=== PATIENT | female | born 1965 | race Caucasian/White ===

== ENCOUNTER → 2016-09-22 | Outpatient (CLI) | payer BC ==
[~2016-09-22] MED LIST: ASPEC81 PO; LPT40 PO; LSN25 PO
--- NOTE | 2016-09-23 14:38 | MAMMOGRAPHY REPORT ---
BILATERAL DIGITAL SCREENING MAMMOGRAM TOMOSYNTHESIS WITH CAD: 09/22/2016 CLINICAL HISTORY: Routine screening examination. TECHNIQUE: Breast tomosynthesis in addition to standard 2D mammography was performed. Current study was also evaluated with a Computer Aided Detection (CAD) system. COMPARISON: Comparison is made to exams dated: 09/21/2015 mammogram, 03/22/2013 mammogram, 09/26/2010 m ammogram, 09/20/2010 mammogram, 05/17/2009 mammogram - [facility], and 06/08/2008. BREAST COMPOSITION: The tissue of both breasts is heterogeneously dense, which may obscure small mas ses. FINDINGS: There is a stable benign appearing mass with associated biopsy marker clip in the upper out er posterior right breast. A nodular asymmetry superior to the biopsied mass appears similar on prio r mammograms dating back to at least 05/16/2008, therefore likely benign. There is stable focal asym metry in the upper outer posterior left breast. No new suspicious mass, architectural distortion or cluster of microcalcifications is seen. IMPRESSION: ACR BI-RADS CATEGORY 1: NEGATIVE There is no mammographic evidence of malignancy. A 1 year screening mammogram is recommended. The pa tient will receive written notification of the results. Approximately 10% of breast cancers are not detected with mammography. A negative mammographic report should not delay biopsy if a clinically suggestive mass is present. Ramya Whitt M.D. ay/:09/22/2016 16:58:15 Business System Manager: Patti RENEE(Noel)(Rakesh), [facility] letter sent: Normal 1/2 BI-RADS Code: ACR BI-RADS Category 1: Negative
== END | disposition home or self-care (01) ==
LOC: C.MAMM 13:46
PROVIDERS: ATTEND Obstetrics & Gynecology
DX: Z12.31 Encounter for screening mammogram for malignant neoplasm of breast (principal)

== ENCOUNTER → 2017-09-24 | Outpatient (CLI) | payer BC ==
[~2017-09-24] MED LIST changes: -ASPEC81 PO; +ASPI-320 PO
--- NOTE | 2017-09-24 15:44 | MAMMOGRAPHY REPORT ---
BILATERAL DIGITAL SCREENING MAMMOGRAM TOMOSYNTHESIS WITH CAD: 09/24/2017 CLINICAL HISTORY: Routine screening. TECHNIQUE: The study was acquired using full field digital technology and interpreted from soft copy. Breast tomosynthesis in addition to standard 2D mammography was performed. Current study was also ev aluated with a Computer Aided Detection (CAD) system. COMPARISON: Comparison is made to exams dated: 09/22/2016 mammogram, 09/21/2015 mammogram, 03/22/2013 m ammogram, 09/20/2010 mammogram, 05/17/2009 mammogram - [facility], and 05/16/2008. BREAST COMPOSITION: The tissue of both breasts is heterogeneously dense, which may obscure small mass es. FINDINGS: No suspicious masses, calcifications, or areas of architectural distortion are noted in either breast . There has been no significant interval change compared to prior exams. Benign-appearing mass with an associated biopsy marker clip in the right upper outer quadrant is stable compared to prior exams. IMPRESSION: ACR BI-RADS CATEGORY 2: BENIGN There is no mammographic evidence of malignancy. A 1 year screening mammogram is recommended.( 019) The patient will receive written notification of the results. Some breast cancers are not detected with mammography. A negative mammographic report should not julienne y biopsy if a clinically suggestive mass is present. Autumn Napoles M.D. ah/:09/24/2017 10:23:45 Freight Loading Supervisor: RT Royer(Neol)(M), [facility] letter sent: Normal 1/2 BI-RADS Code: ACR BI-RADS Category 2: Benign
== END | disposition home or self-care (01) ==
LOC: C.MAMM 09:52
PROVIDERS: ATTEND Obstetrics & Gynecology
DX: Z12.31 Encounter for screening mammogram for malignant neoplasm of breast (principal)

== ENCOUNTER 2022-02-19 05:16 | Observation (INO) ==
--- NOTE | 2022-01-23 09:46 | PAT Medication Instructions ---
Medication Instructions Date of Service January 23, 2022 Home Medications aspirin 81 mg tablet,delayed release 81 mg PO QAM Take morning of surgery With a small sip of water, OTHERWISE NOTHING TO EAT OR DRINK AFTER MIDNIGHT: aspirin 81 mg tablet,delayed release 81 mg PO QAM (continue as normal unless told otherwise by surgeon) Other Notes If you have any questions please call us at [phone] or [phone] or [phone] or [phone]
--- NOTE | 2022-01-27 14:00 | Anesthesiology Consultation ---
Date of Service January 27, 2022 Assessment & Plan (1) Encounter for pre-operative examination: - Outpatient joint assessment: Patient is currently scheduled for inpatient pathway. If re-evaluated pending system levels during current pandemic/surgeon requests outpatient pathway, patient is acceptable candidate for outpatient joint program from anesthesia standpoint pending surgeon's office assessment of pt motivation/support/completion of same day joint program preop requirements. Chart Review Chart Review: Acceptable Risk for Surgery and Patient seen in Pre Admission Testing Teaching & Discussion Pre-Anesthesia Teaching/Discussion Notes: Instructed NPO after midnight before surgery, except medications with 15 cc of water. Medication instructions provided according to the PAT guidelines. History Surgery Operation Date: 02/19/22 12:30 Proposed Procedures p Right Total Knee Arthroplasty - Hill Moya MD Height/Weight Height: 5 ft 6 in Weight: 77.111 kg Allergies Allergy/AdvReac Type Severity Reaction Status Date / Time No Known Drug Allergies Allergy Verified 01/22/22 11:17 Medications Home Medications Medication Instructions Recorded Confirmed Last Taken aspirin 81 mg tablet,delayed 81 mg PO QAM 01/22/22 01/22/22 Unknown release Past Medical History Medical History (Updated 01/27/22 @ 14:08 by Jany Villegas PA-C) COVID-19 04/2021-mild symptoms-not hospitalized-fully resolved History of CVA (cerebrovascular accident) 7 years ago. no residual. History of hypertension resolved with wt loss Patient denies h/o seizures, heart attack, heart failure, DM, blood clots or bl ood transfusions. Exercise / Class Metabolic Activity II 4-5 Yardwork/Stairs/Walk up hill (denies CP or SOB with 1 FOS) Past Family History Family History Brother Colonic polyp Son PONV (postoperative nausea and vomiting) Daughter PONV (postoperative nausea and vomiting) Denies family history of Ovarian cancer Breast cancer Colorectal cancer Past Surgical History Surgical History (Updated 01/27/22 @ 14:05 by Jany Villegas PA-C) H/O arthroscopic knee surgery R H/O vein stripping History of colonoscopy History of endometrial ablation History of wisdom tooth extraction Past Anesthesia History No Hx of Anesthesia Complications and Other (daughter-severe PONV, sons- confusion post-op) History of PONV No Hx of PONV and No Hx of Motion Sickness Social History Smoking Status: Never smoker Do You Dip or Chew Tobacco: No Hx Alcohol Use: Yes alcohol intake frequency: a few times a month Hx Substance Use: No substance use type: does not use Review of Systems Snoring, denies witnessed apneas. Patient denies chest pain, shortness of breath, dyspnea on exertion, reflux, fever, chills, cough, wheezing, or palpitations. Physical Exam Vital Signs Vitals BP 107/74 P 82 TEMP 98 SP02 98% on RA RESP 17 Physical Full cervical extension range of motion without pain TMD 3.5 finger breadths Mallampati Score 2 Dentition: intact, one cap; denies chipped or loose teeth, crown, implants or bridges Lungs: normal respiratory effort. Clear throughout to auscultation, no adventitious breath sounds Cardiac: regular rate and rhythm, no murmurs noted Carotid arteries: negative bruit bilat Lab Results Anesthesia Preop Results Results Anesthesia Widget: WBC 6.90 K/ul (4.8-10.8) 01/27/22 Hgb 14.8 g/dl (12.0-16.0) 01/27/22 Hct 43.1 % (34.1-44.9) 01/27/22 Plt 263 K/uL (130-400) 01/27/22 Na 141 mmol/L (136-145) 01/27/22 K 3.8 mmol/L (3.5-5.1) 01/27/22 Cl 104 mmol/L (98-107) 01/27/22 CO2 31 mmol/L (21-32) 01/27/22 BUN 17 mg/dl (6-23) 01/27/22 Creat 1.15 mg/dl (0.6-1.2) 01/27/22 Glucose Level 107 mg/dl (70-99(Fasting)) H 01/27/22 PT 10.9 Seconds (9.0-12.0) 01/27/22 PTT 26.2 Seconds (21.0-31.0) 01/27/22 INR 1.0 (0.9-1.1) 01/27/22 Blood Type O Negative 01/27/22 Antibody Screen NEGATIVE 01/27/22 Testing Electrocardiogram Date: 01/27/22 NSR, rate 78 bpm Chest X-Ray Date: 01/27/22 PA and lateral chest radiographs are compared to study dated 10/18/2014. The cardiomediastinal silhouette is unremarkable. The lungs and pleural spaces are clear. There is no pneumothorax. The bony thorax appears intact. IMPRESSION: No active disease in the chest. COVID-19 Risk Screen Screening Information COVID-19 Screen Date: 01/27/22 Exposure 21 Days Family/Household +COVID Last 21 Days: No Exposure 10 Days Any COVID Exposure Last 10 Days: No Symptoms Last 10 Days Experienced COVID Sx Last 10 Days: No + COVID 0-90 Days COVID + in Last 0-90 Days: No
--- NOTE | 2022-02-14 17:48 | History and Physical Report ---
CHIEF COMPLAINT: Right knee pain and discomfort. 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 She has got a long history o f right knee problems, developed an OCD lesion many years ago. She did have a knee scope by Dr. Nayeli ramos and debrided back in 2003. She just kind of managed this over the years. It has become mo re disabling. She has been through extensive conservative treatments, really do not help anymore. S he has actually been scheduled for a knee brace placed in the past, but had to cancel for family issu es. She now would like to have her knee fixed. She has limited walking tolerance. She has got glob al pain. Of note, she did recently lose 25 pounds and physically feeling better, but her knee still hurts the same. PAST MEDICAL HISTORY: Significant for mini stroke back in 2005 without sequelae on a baby aspirin. PAST SURGICAL HISTORY. Previous surgery includes: Right knee arthroscopy, debridement, chondroplasty in 2003. ALLERGIES: None. CURRENT MEDICATIONS: Baby aspirin. SOCIAL HISTORY: A 56-year-old female. Very healthy. . Multiple children. Does not smoke. FAMILY HISTORY: Noncontributory. REVIEW OF SYSTEMS: Negative for diabetes, neurologic problem, vascular problem, or bleeding disorder s. No chest pain or shortness of breath. No history of DVT or PE. She did have a mini stroke witho ut sequelae followed by Dr. Connors. She is treated with the baby aspirin. Etiology unclear. PHYSICAL EXAMINATION: GENERAL: Shows a pleasant middle-aged female. Looks to be in excellent health. HEENT: Benign. NECK: Supple. No lymphadenopathy. LUNGS: Clear to auscultation. HEART: Regular rate and rhythm. ABDOMEN: Soft, nontender, nondistended. EXTREMITIES: Grossly neurovascularly intact except as follows. Examination of the right knee reveals the patient walks with a slight bit of a limp. The patient has got well-healed portal sites around her knee. She has got bony hypertrophy medially and laterally. She is tender mostly medially. Small knee effusion. Range of motion about 10 degrees short of full extension to 120 degrees of flexion. There is no instability. No pain with hip motion. X-RAYS: X-rays of the right knee were reviewed. It shows advanced right knee tricompartment DJD. S he has got complete loss of medial joint space. She has got osteophytes in all 3 compartments. ASSESSMENT: A 56-year-old female with a lifelong history of right knee pain and discomfort dating ba ck to an OCD lesion many years ago. She has failed conservative treatment and would like to have her right knee replaced. PLAN: We are going to proceed with right knee replacement. She is hoping to do this as an outpatien t. The risks and benefits of right total knee replacement explained to the patient including but not limited to DVT, PE, , infection, neurological injury, vascular injury, bleeding problem, pain, limited range of motion, stiffness, failure to relieve her symptoms, incomplete relief of symptoms, e tc. The patient understands and desires to proceed. Informed consent was obtained. We will plan on using aspirin for DVT prophylaxis. Job ID: [id number]
[2022-02-19] MEDS ORDERED: LR 60ML/HR IV SCH (06:00)
[2022-02-19] MEDS ORDERED: ceFAZolin 2000MG 2,000 MG/15 ML SYR IV SCH (06:00)
[2022-02-19] MEDS ORDERED: METOCLOPRAMIDE HCL 10 MG TABLET PO SCH (06:00)
[2022-02-19] MEDS ORDERED: TRANEXAMIC ACID 1,000 MG **IV Intra-op IV SCH (06:00)
[2022-02-19] MEDS ORDERED: LR 500ML BOLUS, THEN 15ML/HR IV SCH (06:00)
[2022-02-19] MEDS ORDERED: CeleBREX 200 MG CAP PO SCH (06:00)
[2022-02-19] MEDS ORDERED: Scopolamine 1 MG TDSY TD SCH (06:00)
[2022-02-19] MEDS ORDERED: FAMOTIDINE 20 MG TAB PO SCH (06:00)
[2022-02-19] MEDS ORDERED: BUPIVACAINE LIPOSOME/PF 266 MG, BUPIVACAINE/EPINEPHRINE 50 ML, SODIUM CHLORIDE 0.9% 30 ... INFIL SCH (06:00)
[2022-02-19] MEDS ORDERED: ACETAMINOPHEN 500 MG TAB PO SCH (06:00)
[2022-02-19] MEDS ORDERED: ONDANSETRON INJ 2 MG/ML 2 ML VIAL IV PRN ×2 (06:24→16:30)
[2022-02-19] MEDS ORDERED: fentaNYL citrate 100 MCG/2 ML VIAL IV PRN (06:24)
[2022-02-19] MEDS ORDERED: ATROPINE SULFATE 0.1 MG/ML 10ML SYR IV PRN (06:24)
[2022-02-19] MEDS ORDERED: ePHEDrine sulfate 50 MG/ML AMP IV PRN (06:24)
[2022-02-19] MEDS ORDERED: MEPIVACAINE HCL 1.5% 30 ML VIAL ONE (06:28)
[2022-02-19] MEDS ORDERED: BUPIVACAINE 0.25% 30 ML VIAL ONE (06:28)
[2022-02-19] MEDS ORDERED: SODIUM CHLORIDE 0.9% PF 50 ML VIAL ONE (06:35)
[2022-02-19] MEDS ORDERED: BUPIVACAINE/EPINEPHRINE 0.25% 1:200,000 30 ML VIAL ONE (06:35)
[2022-02-19] MEDS ORDERED: BUPIVACAINE LIPOSOME 1.3% 266 MG/20 ML VIAL ONE (06:35)
[2022-02-19] MEDS ORDERED: MIDAZOLAM HCL 1 MG/ML 2ML VIAL ONE (06:42)
--- NOTE | 2022-02-19 06:55 | History & Physical Bridge Note ---
Date of Service February 19, 2022 History & Physical Bridge Note I have examined the patient, reviewed the History & Physical and in the interval since the performance of the History & Physical I have noted the following changes of clinical significance: no changes noted
[2022-02-19] MEDS ORDERED: KETAMINE 50 MG/5 ML SYRINGE ONE (07:07)
[2022-02-19] MEDS ORDERED: PROPOFOL IV EMULSION 10 MG/ML 20 ML VIAL IV ONE (07:08)
[2022-02-19] MEDS ORDERED: KETOROLAC 30 MG/ML VIAL ONE (07:08)
[2022-02-19] MEDS ORDERED: LIDOCAINE 2% MPF LOCAL 5 ML VIAL INFIL ONE (07:08)
[2022-02-19] MEDS ORDERED: fentaNYL citrate 100 MCG/2 ML VIAL ONE (07:24)
[2022-02-19] MEDS ORDERED: ePHEDrine sulfate 50 MG/ML AMP ONE (07:59)
--- NOTE | 2022-02-19 08:51 | Operative Report ---
PG Post Operative Report Pre & Post Diagnosis Operation Date: 02/19/22 07:00 Pre-Op Diagnosis: Right Knee Degenerative Joint Disease Post-Op Diagnosis: Right Knee Degenerative Joint Disease I identified the patient and participated in the time-out.: Yes Procedure Operation Date: 02/19/22 07:00 Actual Procedures p Right Total Knee Arthroplasty, Cemented(Right) - Hill Moya MD Surgeon Hill Moya MD Operator/Assistant Foreman Domingo Jo PA-C Estimated Blood Loss 50 Findings Consistent with Post-Op Diagnosis Operative findings revealed advanced right knee tricompartment DJD. She had pretty extensive grade 4 xtyp-bj-gors disease disease in all 3 compartments most severe in the medial and patellofemoral compartments. Fluids 1300 cc Specimens Right knee sent for pathology Anesthesia Type Spinal MAC Complications none Disposition Accompanied Patient To Recovery: No Indications Patient is a 56-year-old very active female has had a long history of right knee pain discomfort dating back to an OCD lesion many many years ago. She had previous knee arthroscopy 20 years ago. She has been managing this conservatively but has become more more difficult as time goes on. She is exhausted all conservative care. She elected proceed with total knee arthroplasty. Description of Procedure Operative implants consist of: 1 Biomet Vanguard size 65 right posterior stabilized femoral component. 2. Biomet size 67 tibial tray. 3. 12 mm posterior stabilized polyethylene insert. 4. 28 x 8 all Paller patella. The patient was taken the operating, identified, and placed on the operating table supine position protectors were properly padded. IV antibiotics tried by anesthesia team. A spinal anesthetic and abductor canal block had been provided holding area. Right thigh tent was then placed. The right lower extremities then prepped and draped in the usual sterile fashion. The right leg was elevated exsanguinated with use of an Esmarch and the tourniquet was set at 300 mmHg. An anterior approach of the right knee was then performed to longitudinal incision centered over the patella. Sharp dissection scalp through subcutaneous tissue down the extensor mechanism. A medial parapatellar arthrotomy incision was made. Some subperiosteal dissection was carried out medially. The fat pad was resected from Neath patella tendon. Lateral patellofemoral ligament was released. Patella subluxated laterally and the knee was flexed. The osteophytes were taken off the distal femur. The ACL was absent. The PCL was released from the distal femur and the tibia subluxated anteriorly. External tibial alignment jig was then placed to the anterior face of the tibia and adjusted 14 mm medially. Proximal tibial cut was made removed 3 mm of bone from the medial side. The tibia was then sized to a size 67. Attention drawn the femur. The distal femur examined the sharp drop with intramedullary canal was suction. A right 5 degree distal femoral cutting block was pinned in place. Distal femoral cut was made to take an additional 3 mm bone off distal femur. The femur was then sized to a size 65. Sized almost exactly to a 65. The AP cutting block was pinned parallel to the epicondylar axis which was 4 degrees of external rotation. The anterior cut, anterior chamfer, posterior cut, posterior chamfer cuts were made. The box cutting guide was placed in just slight lateral box cut was made. The knee was flexed. The remnants of the medial and lateral menisci were excised. The osteophytes were taken off the posterior aspect of the femur. Trial femoral component was placed. The tibial tray was pinned in maximum external rotation and the drill and stem punch used to create defect in proximal tibia for the tibial tray. Knee was then trialed and the 12 mm insert fit most appropriately. Attention drawn the patella. The patella was cleaned of all soft tissues. Patella thickness measured by 18 mm in thickness was cut down to 13. It was sized to a size 28 patella. The lug holes were drilled for the 28 patella. The lateral osteophyte was removed. Patella button was placed. Knee was taken through range of motion the patella tracked nicely with the no thumbs test. Attention drawn to placing permanent components. All trial components were removed. Bone plug was placed in the distal femur limit blood loss. A double batch Palacos G cement was mixed. Biomet Vanguard size 65 right posterior stabilized femoral component, size 67 tibial tray, a 12 mm posterior stabilized polyethylene insert, and 28 x 8 all Paller patella then cemented in place. Knee was brought out into full extension until cement hardened. Final cement check was then performed. Pericapsular tissues were injected with total 100 cc of combination of 20 cc of Exparel, 30 cc normal saline, 50 cc of quarter percent Marcaine with epinephrine. Patient did receive 1 g tranexamic acid. The tourniquet was let down for final tourniquet time 56 minutes. Hemostasis reduced electrocautery. The extensor mechanism then closed with a combination 1 PDS suture #1 Vicryl suture in [id number] fashion. Extensor mechanism checked found to be intact the subcutaneous tissue then closed with 2 Dexon suture in a buried interrupted fashion skin was closed skin randi. Leg was then cleaned and dried a sterile dressing was Xeroform, 4 x 4's, sterile cast padding, Gurdeep bandage were applied. Patient then transferred to the recovery room in stable condition. Patient tolerated procedure well and there were no complications. Domingo Jo, my physician certified surgical tech/first assistant, was present for the entire procedure. His assistance was essential and required for appropriate patient positioning, prepping and draping, surgical exposure, performing the technical details of the operation, placement the implants, closure of the wound, and placement of the sterile bandage. I attest to the content of the Intraoperative Record and any orders documented therein. Any exceptions are noted below.
[2022-02-19] MEDS ORDERED: ONDANSETRON INJ 2 MG/ML 2 ML VIAL ONE (08:55)
--- NOTE | 2022-02-19 09:09 | XRay Report ---
XR knee RT 1 or 2V routine CLINICAL HISTORY: Surgical Post Op TECHNIQUE: 2 views of the right knee were obtained. Comparison: Comparison is made to knee radiographs 01/20/2022 FINDINGS: Patient is status post total knee arthroplasty with expected postsurgical changes including soft tiss ue swelling and subcutaneous emphysema. No periarticular lucency or hardware fracture is seen. IMPRESSION: Expected postoperative appearance status post placement of total knee arthroplasty. ACT 112: Negative or not required by law. Electronically signed by: Zackary Woodson M.D. 02/19/2022 9:07 AM
[2022-02-19] MEDS ORDERED: ceFAZolin 1000MG 1,000 MG/7.5 ML SYR IV ONE (10:00)
--- NOTE | 2022-02-19 10:43 | Anesthesiology Progress Note ---
Date of Service February 19, 2022 Anesthesia Post Procedure Vital Signs Vital Signs: Temp Pulse Pulse Resp BP BP Pulse Ox 02/19/22 10:11 36.6 C 66 18 106/85 98 02/19/22 09:20 36.5 C 81 18 111/69 96 02/19/22 09:15 36.4 C L 70 14 131/68 94 02/19/22 09:05 64 13 125/73 93 02/19/22 08:55 68 17 123/69 98 02/19/22 08:47 36.3 C L 71 12 127/70 98 02/19/22 05:39 36.7 C 67 20 151/89 H 98 O2 Del Method O2 Flow Rate 02/19/22 10:11 Room Air 02/19/22 09:20 Room Air 02/19/22 09:15 Room Air 02/19/22 09:05 Room Air 02/19/22 08:55 Room Air 02/19/22 08:47 Oxymask 4 02/19/22 05:39 Room Air Pain Intensity Right Leg: Pain Intensity: 7 Transfer of Care Handoff Completed per policy Notes Mental Status: alert / awake / arousable and participated in evaluation Patient Amnestic to Procedure: Yes Nausea / Vomiting: adequately controlled Pain: adequately controlled Airway Patency, RR, SpO2: stable & adequate BP & HR: stable & adequate Hydration State: stable & adequate Neuraxial Anesthesia: was administered and sensory block is resolving Anesthetic Complications: no major complications apparent and Pt Satisfied with anesthetic care
[2022-02-19] MEDS: oxyCODONE/ACETAMINOPHEN 5mg/325mg TAB PO PRN ×3 (10:56→19:59)
[2022-02-19] MEDS ORDERED: bisacodyL 10 MG SUPP PR PRN (16:30)
[2022-02-19] MEDS ORDERED: SODIUM CHLORIDE 0.9% 1000ML 1,000 ML IV SCH (16:30)
[2022-02-19] MEDS ORDERED: HYDROmorphone INJ 0.5 MG/0.5 ML SYR IV PRN (16:30)
[2022-02-19] MEDS ORDERED: diphenhydrAMINE Capsule 25 MG CAP PO PRN (16:30)
[2022-02-19] MEDS ORDERED: NALOXONE HCL 0.4 MG/1 ML VIAL/CARP IV PRN (16:30)
[2022-02-19] MEDS ORDERED: MAGNESIUM HYDROXIDE SUSP 30 ML UDC PO PRN (16:30)
[2022-02-19] MEDS ORDERED: METOCLOPRAMIDE HCL INJ 5 MG/ML 2 ML VIAL IV PRN (16:30)
[2022-02-19] MEDS ORDERED: oxyCODONE HCL IR 5 MG TAB (IMMEDIATE RELEASE) PO PRN (16:30)
[2022-02-19] MEDS ORDERED: ALUMINUM/MAGNESIUM SUSP 30 ML UDC PO PRN (16:30)
[2022-02-19] MEDS: Scopolamine CHECK PATCH PLACEMENT SCH ×2 (17:54→23:58)
[2022-02-19] MEDS: ASCORBIC ACID 500 MG TAB PO SCH (17:54)
[2022-02-19] MEDS: KETOROLAC 30 MG/ML VIAL IV SCH ×2 (17:55→23:06)
[2022-02-19] MEDS: ceFAZolin 1000MG 1,000 MG/7.5 ML SYR IV SCH (17:55)
[2022-02-19] MEDS: ASPIRIN 81 MG ECTAB PO SCH (20:20)
[2022-02-19] MEDS: DOCUSATE SODIUM 100 MG CAP PO SCH (20:20)
[2022-02-19] MEDS: DOCUSATE SODIUM/SENNA 50/8.6MG TAB PO SCH (20:21)
[2022-02-19] MEDS ORDERED: SENNA 8.6 MG TAB PO SCH (21:00)
[2022-02-19] MEDS ORDERED: TRANEXAMIC ACID / 0.7% NACL 1,000 MG/100 ML BAG IV SCH (21:00)
[2022-02-19] MEDS: ACETAMINOPHEN 500 MG TAB PO SCH (21:59)
[2022-02-20] MEDS: oxyCODONE/ACETAMINOPHEN 5mg/325mg TAB PO PRN ×3 (00:01→08:29)
[2022-02-20] MEDS: ACETAMINOPHEN 500 MG TAB PO SCH (01:08)
[2022-02-20] MEDS: ceFAZolin 1000MG 1,000 MG/7.5 ML SYR IV SCH (02:34)
[2022-02-20] MEDS: KETOROLAC 30 MG/ML VIAL IV SCH ×2 (04:22→11:33)
[2022-02-20 07:41] LABS: Hemoglobin 11.8 g/dl (12.0-16.0); Mean Corpuscular Hemoglobin 30.5 pg (25.0-34.0); Mean Corpuscular Hgb Conc 33.7 g/dL (32.0-36.0); Mean Corpuscular Volume 90.4 fL (80.0-100.0); Mean Platelet Volume 9.6 fL (9.4-12.3); Platelet Count 189 K/uL (130-400); RDW Coefficient of Variation 12.7 % (11.5-14.5); RDW Standard Deviation 41.4 fL (36.4-46.3); Red Blood Count 3.87 M/uL (3.93-5.22); White Blood Count 6.24 K/ul (4.8-10.8)
--- NOTE | 2022-02-20 07:43 | Progress Notes ---
DATE OF SERVICE: 02/20/2022. SUBJECTIVE: A 56-year-old white female, postoperative day 1 from a right knee replacement. She is d oing much better this morning. She has gotten up and walked around by herself with a walker. Dizzin ess seems to be resolved. No chest pain or shortness of breath. OBJECTIVE: VITAL SIGNS: Temperature 36.9. Vital signs are stable. GENERAL: Shows a pleasant middle-aged female. She is sitting by her bedside with dangling her feet and looks quite comfortable. LUNGS: Clear to auscultation. HEART: Regular rate and rhythm. ABDOMEN: Soft, nontender, nondistended. EXTREMITIES: Grossly neurovascularly intact except as follows. Examination of the right leg reveals the dressing to be clean, dry and intact. She can dorsiflex and plantarflex her foot appropriately. She is neurologically intact. ASSESSMENT: A 56-year-old white female, postoperative day 1 from right knee replacement, doing well. She is planning on going home, but had troubles with orthostasis. This seems to be resolved. PLAN: 1. DVT prophylaxis includes thigh-high TEDs, SCDs, and aspirin twice a day. 2. PT/OT, weightbear as tolerated. Right total knee protocol. 3. Pain control, doing well with current pain regimen. 4. Disposition: Plan to discharge to home with some home health after therapy today. Job ID: [id number]
[2022-02-20] MEDS ORDERED: dexAMETHasone 10 MG in SYRINGE 0 ML IV SCH (08:00)
[2022-02-20] MEDS: ASPIRIN 81 MG ECTAB PO SCH (08:30)
[2022-02-20] MEDS: DOCUSATE SODIUM 100 MG CAP PO SCH (08:31)
[2022-02-20] MEDS: DOCUSATE SODIUM/SENNA 50/8.6MG TAB PO SCH (08:31)
[2022-02-20] MEDS: Scopolamine CHECK PATCH PLACEMENT SCH (08:34)
[2022-02-20] MEDS ORDERED: MULTIVITAMIN TAB PO SCH (09:00)
[2022-02-20 09:03] LABS: BUN Creatinine Ratio 11.6 (10-20); Calcium 8.5 mg/dl (8.5-10.1); Creatinine Clr Calc Pharmacy 59.7 ml/min; Est GFR (African American) 63.6 ml/min; Est GFR (Non-African American) 54.9 ml/min; Potassium 3.9 mmol/L (3.5-5.1)
[2022-02-20] MEDS: ASCORBIC ACID 500 MG TAB PO SCH (09:47)
--- NOTE | 2022-02-22 16:05 | Discharge Summary ---
Date of Service February 22, 2022 Discharge Data Procedures Performed Operation Date: 02/19/22 07:00 Actual Procedures p Right Total Knee Arthroplasty, Cemented(Right) - Hill Moya MD Hospital Course (1) Status post total right knee replacement: This is a 56 year old patient admitted on 02/19/22 and underwent total knee arthroplasty. She tolerated the procedure well and there were no complications. She had some hypotension post op and was admitted, transferred to the PACU post op and later to the orthopedic floor for further care. She was given ancef for antibiotic prophylaxis. She was also given RENETTA stockings, SCDs, and aspirin for DVT prophylaxis. Hemoglobin, hematocrit, and vital signs were monitored during her hospital stay and remained stable. Did not require any blood transfusions. There were no complications during her hospital stay. By post op day #1 the patient was tolerating a regular diet, pain was reasonably controlled with oral pain medicine, and she was participating in physical therapy. On post op day #1 the patient was discharged home and set up with home health care. She was given printed discharge instructions including prescriptions for extra strength tylenol, aspirin, cefadroxil, zofran, ketorolac, senokot, and oxycodone. Continue physical therapy, weight bearing as tolerated. Continue RENETTA stockings. Follow up approximately 2 weeks post op or sooner if there are problems or concerns. Coding Level of Care Code None Diagnoses Status post total right knee replacement Z96.651
== END 2022-02-20 12:33 | disposition home health service (06) ==
LOC: ASU 05:16 → 3N 05:16

== ENCOUNTER 2024-06-14 05:20 | Observation (INO) ==
--- NOTE | 2024-05-12 16:15 | PAT Medication Instructions ---
Medication Instructions Date of Service May 12, 2024 Home Medications aspirin 81 mg tablet,delayed release (Huma Low Dose Aspirin) 81 mg PO QAM multivitamin 1 tab PO QAM ASK your prescriber and surgeon aspirin 81 mg tablet,delayed release (Huma Low Dose Aspirin) 81 mg PO QAM DO NOT take the morning of surgery multivitamin 1 tab PO QAM MORNING OF SURGERY: NOTHING TO EAT OR DRINK AFTER MIDNIGHT Other Notes If you have any questions please call us at [phone] or [phone] or [phone] or [phone]
--- NOTE | 2024-05-19 15:17 | Anesthesiology Consultation ---
Date of Service May 19, 2024 Assessment & Plan (1) Encounter for pre-operative examination: - Outpatient joint assessment: Patient is currently scheduled for inpatient pathway. If re-evaluated and patient/surgeon requests outpatient pathway, patient is acceptable candidate for outpatient joint program from anesthesia standpoint pending surgeon's office assessment of pt motivation/support/completion of same day joint program preop requirements. Chart Review Chart Review: Acceptable Risk for Surgery and Patient seen in Pre Admission Testing Teaching & Discussion Pre-Anesthesia Teaching/Discussion Notes: Instructed NPO after midnight before surgery, except medications with 15 cc of water. Medication instructions provided according to the PAT guidelines. History Surgery Operation Date: 06/14/24 10:40 Proposed Procedures p Right Total Hip Arthroplasty - Hill Moya MD Height/Weight Height: 5 ft 6 in Weight: 88.4 kg Allergies Allergy/AdvReac Type Severity Reaction Status Date / Time Sulfa (Sulfonamide Allergy Mild Rash Verified 05/11/24 16:03 Antibiotics) Medications Home Medications Medication Instructions Recorded Confirmed Last Taken aspirin 81 mg tablet,delayed 81 mg PO QAM 05/11/24 05/11/24 Unknown release (Huma Low Dose Aspirin) multivitamin 1 tab PO QAM 05/11/24 05/11/24 Unknown Past Medical History Medical History (Updated 05/19/24 @ 16:27 by Jany Villegas PA-C) Arthritis of right hip Chronic venous insufficiency COVID-19 (~2021) 04/2021-mild symptoms-not hospitalized-fully resolved History of CVA (cerebrovascular accident) (2014) no deficits--on aspirin daily--following with Dr. Stokes History of hypertension resolved with wt loss PONV (postoperative nausea and vomiting) Sleep apnea mild--bite block is being made, no CPAP Patient denies h/o seizures, heart attack, heart failure, DM, blood clots/DVTs or blood transfusions. Exercise / Class Metabolic Activity II 4-5 Yardwork/Stairs/Walk up hill (denies chest discomfort or shortness of breath with one flight of stairs) Past Family History Family History Brother Colonic polyp Son PONV (postoperative nausea and vomiting) Daughter PONV (postoperative nausea and vomiting) Mother Amyloidosis Father Coronary heart disease Hypertension Denies family history of Ovarian cancer Breast cancer Colorectal cancer Past Surgical History Surgical History (Updated 05/19/24 @ 15:19 by Jany Villegas PA-C) H/O arthroscopic knee surgery R H/O vein stripping right leg History of colonoscopy History of endometrial ablation History of knee replacement (02/2022) right History of wisdom tooth extraction Past Anesthesia History No Hx of Anesthesia Complications History of PONV No Hx of Motion Sickness and History of PONV (did well with IV pre-dosing) Social History Smoking Status: Never smoker Do You Dip or Chew Tobacco: No Hx Alcohol Use: No alcohol intake frequency: a few times a month Hx Substance Use: No substance use type: does not use Review of Systems Patient denies chest pain, shortness of breath, dyspnea on exertion, reflux, fever, chills, cough, wheezing, or palpitations. Physical Exam Vital Signs Vitals BP 117/74 P 74 TEMP 97.9 SP02 97% on RA RESP 18 Physical Patient resting comfortably in chair in no acute distress, alert and oriented, responding appropriately throughout visit Full cervical extension range of motion without pain TMD 3.5 finger breadths Mallampati Score 2 Dentition: cap front upper tooth, denies chipped or loose teeth, crowns, implants or bridges Lungs: normal respiratory effort. Good air movement, clear throughout to auscultation, no adventitious breath sounds Cardiac: regular rate and rhythm, no murmurs noted Carotid arteries: negative bruit bilat Lab Results Anesthesia Preop Results Results Anesthesia Widget: WBC 5.57 K/ul (4.8-10.8) 05/19/24 Hgb 14.6 g/dl (12.0-16.0) 05/19/24 Hct 42.2 % (37.0-47.0) 05/19/24 Plt 248 K/uL (130-400) 05/19/24 Na 141 mmol/L (136-145) 05/19/24 K 4.4 mmol/L (3.5-5.1) 05/19/24 Cl 104 mmol/L (98-107) 05/19/24 CO2 32 mmol/L (21-32) 05/19/24 BUN 19 mg/dl (6-23) 05/19/24 Creat 1.00 mg/dl (0.6-1.2) 05/19/24 Glucose Level 112 mg/dl (70-99(Fasting)) H 05/19/24 PT 10.6 Seconds (9.0-12.0) 05/19/24 PTT 27 Seconds (21-31) 05/19/24 INR 1.0 (0.9-1.1) 05/19/24 Blood Type O Negative 05/19/24 Antibody Screen NEGATIVE 05/19/24 Testing Electrocardiogram Date: 05/19/24 NSR, rate 70 bpm Chest X-Ray Date: 05/19/24 Stable exam; no acute process.
[2024-06-14] MEDS: LR 500ML BOLUS, THEN 15ML/HR IV SCH (05:48)
[2024-06-14] MEDS: CeleBREX 200 MG CAP PO SCH (06:02)
[2024-06-14] MEDS: LR 60ML/HR IV SCH (06:02)
[2024-06-14] MEDS: METOCLOPRAMIDE HCL 10 MG TABLET PO SCH (06:08)
[2024-06-14] MEDS: ACETAMINOPHEN 500 MG TAB PO SCH ×2 (06:08→10:50)
[2024-06-14] MEDS: FAMOTIDINE 20 MG TAB PO SCH (06:08)
[2024-06-14] MEDS: dexAMETHasone**PF** 10 MG/ML VIAL IV SCH (06:09)
[2024-06-14] MEDS ORDERED: BUPIVACAINE 0.5 % 5 MG/1 ML PF 10ML VIAL ONE (06:28)
[2024-06-14] MEDS ORDERED: fentaNYL citrate PF 100 MCG/2 ML VIAL IV PRN (06:29)
[2024-06-14] MEDS ORDERED: ePHEDrine sulfate 50 MG/ML AMP IV PRN (06:29)
[2024-06-14] MEDS ORDERED: ATROPINE SULFATE 0.1 MG/ML 10ML SYR IV PRN (06:29)
[2024-06-14] MEDS ORDERED: DROPERIDOL 5 MG/2 ML VIAL IV PRN (06:29)
[2024-06-14] MEDS ORDERED: MIDAZOLAM HCL 1 MG/ML 2ML VIAL ONE (06:32)
[2024-06-14] MEDS ORDERED: fentaNYL citrate PF 100 MCG/2 ML VIAL ONE (06:32)
--- NOTE | 2024-06-14 06:35 | History & Physical Bridge Note ---
Date of Service June 14, 2024 History & Physical Bridge Note I have examined the patient, reviewed the History & Physical and in the interval since the performance of the History & Physical I have noted the following changes of clinical significance: no changes noted
[2024-06-14] MEDS ORDERED: LIDOCAINE 2% 2 ML VIAL/AMP(20MG/ML) INFIL ONE (06:39)
[2024-06-14] MEDS ORDERED: PROPOFOL IV EMULSION 10 MG/ML 20 ML VIAL IV ONE (06:39)
[2024-06-14] MEDS: TRANEXAMIC ACID 1,000 MG **IV Pre-op IV SCH (06:43)
[2024-06-14] MEDS: ceFAZolin 2000MG 2,000 MG/15 ML SYR IV SCH ×2 (06:57→15:21)
[2024-06-14] MEDS ORDERED: PHENYLEPHRINE 100MCG/ML 5ML SYR ONE (07:18)
[2024-06-14] MEDS ORDERED: ePHEDrine sulfate 50 MG/5 ML SYR ONE (07:18)
[2024-06-14] MEDS: BUPIVACAINE/EPINEPHRINE 0.5% MPF 1:200,000 30 ML VIAL ONE (07:34)
--- NOTE | 2024-06-14 08:48 | Operative Report ---
PG Post Operative Report Pre & Post Diagnosis Operation Date: 06/14/24 07:00 Pre-Op Diagnosis: Right Hip Degenerative Joint Disease Post-Op Diagnosis: Right Hip Degenerative Joint Disease I identified the patient and participated in the time-out.: Yes Procedure Operation Date: 06/14/24 07:00 Actual Procedures p Right Total Hip Arthroplasty, Uncemented(Right) - Hill Moya MD Surgeon Hill Moya MD Sewer Head Domingo Jo PA-C Estimated Blood Loss 150 Findings Consistent with Post-Op Diagnosis Operative findings were advanced right hip DJD. She had grade 4 [id number] disease of the femoral head and acetabulum. Moderate-sized joint effusion. Fairly minimal osteophyte formation. Specimens Right femoral head sent for pathology. Anesthesia Type Spinal MAC Complications none Disposition Accompanied Patient To Recovery: No Indications Patient is a 59-year-old fairly active female whose had a history of orthopedic problems in the past. She underwent a right knee replacement about 2 and half years ago. Over the past year she developed increased pain discomfort in her right hip has gotten markedly worse over the past 6 months. She failed conservative care. X-rays show progressive hip arthritis. She elected proceed with operative treatment Description of Procedure Operative implants consist of: 1 Biomet G7 size 50 mm acetabular shell. 2. Raymond hole stone cutter. 3. 6.5 cancellous acetabular screws 135 mm length and 125 mm length. 4. Highly cross-linked polyethylene liner with a 50 mm outer diameter, 36 mm diam with a ram placed inferior and posterior. 5. DePuy Corail size 11 short neck 125 degree angle femoral stem. 6. +5/36 mm ceramic articular ball. The patient was taken the op room, identified, placed on the operating table in the supine position. All conductors were appropriately padded. IV antibiotics fibra anesthesia team. A spinal anesthetic had been implemented holding area. A Shah catheter was placed in sterile fashion. The patient then placed in the left lateral cubitus position. An axillary roll was placed. A stool Birkett position was used for positioning. The right hip and leg were then prepped and draped in usual sterile fashion. A posterolateral approach to the right hip was then performed to a curvilinear incision centered over the greater trochanter. Sharp dissection was carried thr ough subcutaneous tissue down of the IT band gluteal fascia with the IT band gluteal fascia incised longitudinally in line with skin incision. The underlying greater bursa was excised. The piriformis and external rotators along with the posterior joint capsule were then released from the posterior aspect the hip as a single layer. The hip was internally rotated and dislocated. A femoral neck osteotomy cut was made with Final Cut about 10 mm above the lesser trochanter. Femoral head was removed and sent for pathology. The femur was retracted anteriorly. Attention was then drawn to the acetabulum. The acetabular labrum was excised. The pulmonary fat was excised. Sequential reaming the acetabular was then performed again with size 43 and progressing up to a 49. I reamed a little bit with a 50 reamer and then placed a 50 mm Biomet cup in about 40 degrees lateral opening and 20 degrees of anteversion. It was fixed with two 6.5 screws. A trial liner was placed. Attention drawn the femur. The proximal femur was entered with a ChaoWIFI cutter followed by canal finder. I then broached beginning the size 8 and progressing up to 11. Get excellent fit at 11. We trialed the hip and the +5 articular ball with the standard coxa vara neck just seemed too tight particular in extension. Therefore we elected to use a short neck. When we trialed this with a +5 articular ball, the soft tissue tension seemed appropriate, leg lengths seemed equal and the hip was stable in full extension and external rotation flexion to about 90 degrees internal Tatian about 50 degrees. I did elect to place a ram inferior and posterior to maximize her stability in flexion. We elected place these implants. All trial implants were removed. An apex hole stone cutter was placed. Highly cross-linked polyethylene liner was placed with a ram placed inferior and posteriorly. A size 11 KLA short neck 125 degree angle femoral stem was then impacted in position. A +5/36 mm ceramic articular ball was placed. Hip was located once again found to be stable. Attention drawn toward closing. Wounds irrigated copious amounts of pulsatile lavage solution. We did inject locally with 60 cc of half percent Marcaine with epinephrine. I did do a Betadine soak. The wound was then once again irrigated. The posterior capsule and external rotators were then repaired through drill holes in the posterior trochanter with #2 Tycron suture. The IT band gluteal fascia was then closed with #1 PDS suture running fashion through subcutaneous tissue then closed with 2 layers of the deep layer #2 Vicryl suture and subcutaneous tissues with 2-0 Dexon suture in a buried interrupted fashion. The skin was then closed with skin randi. Leg was then cleaned and dried and a sterile Prevena VAC dressing was applied due to the fairly thick soft tissue envelope. The patient was then transported to the recovery room in stable condition. The patient tolerated procedure well and there were no complications. Domingo Jo, my physician medical records assistant, was present for the entire procedure. His assistance was essential and required for appropriate patient positioning, prepping and draping, surgical exposure, performing the technical details of the operation, placement the implants, closure of the wound, and placement of the sterile bandage. I attest to the content of the Intraoperative Record and any orders documented therein. Any exceptions are noted below.
--- NOTE | 2024-06-14 09:15 | XRay Report ---
XR hip 1V RT w pelvis CLINICAL HISTORY: IN PACU - Post Surgical COMPARISON: None FINDINGS: Right hip prosthesis shows no hardware complication. There is expected soft tissue gas. Sk in randi are present. IMPRESSION: Unremarkable postoperative exam. ACT 112: Negative or not required by law. Electronically signed by: West Restrepo M.D. 06/14/2024 9:13 AM
[2024-06-14] MEDS ORDERED: ONDANSETRON INJ 2 MG/ML 2 ML VIAL IV PRN (10:33)
[2024-06-14] MEDS ORDERED: diphenhydrAMINE Capsule 25 MG CAP PO PRN (10:33)
[2024-06-14] MEDS ORDERED: HYDROmorphone INJ 0.5 MG/0.5 ML SYR IV PRN (10:33)
[2024-06-14] MEDS ORDERED: MAGNESIUM HYDROXIDE SUSP 30 ML UDC PO PRN (10:33)
[2024-06-14] MEDS ORDERED: NALOXONE HCL 0.4 MG/1 ML VIAL/CARP IV PRN (10:33)
[2024-06-14] MEDS ORDERED: ALUMINUM/MAGNESIUM SUSP 30 ML UDC PO PRN (10:33)
[2024-06-14] MEDS ORDERED: METOCLOPRAMIDE HCL INJ 5 MG/ML 2 ML VIAL IV PRN (10:33)
[2024-06-14] MEDS ORDERED: bisacodyL 10 MG SUPP PR PRN (10:33)
[2024-06-14] MEDS: KETOROLAC 30 MG/ML VIAL IV SCH (10:51)
[2024-06-14] MEDS: NON-FORMULARY MEDICATION (Multivitamin Tablet) PO SCH (10:52)
[2024-06-14] MEDS: SODIUM CHLORIDE 0.9% 1,000 ML IV SCH (11:08)
[2024-06-14] MEDS: DOCUSATE SODIUM 100 MG CAP PO SCH (11:18)
[2024-06-14] MEDS: SENNA 8.6 MG TAB PO SCH (11:18)
[2024-06-14] MEDS: ASPIRIN 81 MG ECTAB PO SCH (12:11)
[2024-06-14] MEDS: MULTIVITAMIN TAB PO SCH (12:11)
--- NOTE | 2024-06-14 12:39 | Anesthesiology Progress Note ---
Date of Service June 14, 2024 Anesthesia Post Procedure Vital Signs Vital Signs: Temp Pulse Pulse Resp BP Pulse Ox O2 Del Method 06/14/24 11:31 36.6 C 67 17 125/82 98 Room Air 06/14/24 10:30 36.4 C L 75 17 131/76 97 Room Air 06/14/24 10:20 87 20 135/71 99 Room Air 06/14/24 10:05 73 14 122/70 95 Room Air 06/14/24 09:50 65 12 126/73 96 Room Air 06/14/24 09:40 65 14 132/72 96 Room Air 06/14/24 09:30 70 16 133/75 97 Room Air 06/14/24 09:20 82 16 138/75 95 Room Air 06/14/24 09:10 36.4 C L 75 14 145/79 H 94 Room Air 06/14/24 09:00 74 16 135/77 100 Oxymask 06/14/24 08:50 69 12 132/85 97 Oxymask 06/14/24 08:40 74 12 125/67 98 Oxymask 06/14/24 08:34 36.2 C L 72 16 119/66 97 Oxymask 06/14/24 05:44 36.9 C 78 18 150/84 H 96 Room Air O2 Flow Rate 06/14/24 11:31 06/14/24 10:30 06/14/24 10:20 06/14/24 10:05 06/14/24 09:50 06/14/24 09:40 06/14/24 09:30 06/14/24 09:20 06/14/24 09:10 06/14/24 09:00 4 06/14/24 08:50 4 06/14/24 08:40 4 06/14/24 08:34 4 06/14/24 05:44 Pain Intensity Right Hip: Pain Intensity: 3 Transfer of Care Handoff Completed per policy Notes Mental Status: alert / awake / arousable Patient Amnestic to Procedure: Yes Nausea / Vomiting: adequately controlled Pain: adequately controlled Airway Patency, RR, SpO2: stable & adequate BP & HR: stable & adequate Hydration State: stable & adequate Anesthetic Complications: no major complications apparent and Pt Satisfied with anesthetic care
[2024-06-14] MEDS: TRANEXAMIC ACID / 0.7% NACL 1,000 MG/100 ML BAG IV SCH (14:57)
[2024-06-14] MEDS: ASCORBIC ACID 500 MG TAB PO SCH (17:25)
[2024-06-14] MEDS: traMADol HCL 50 MG TABLET PO PRN (18:41)
[2024-06-14] MEDS ORDERED: SENNA 8.6 MG TAB PO SCH (21:00)
[2024-06-15 06:36] LABS: Basophils # (auto) 0.03 K/uL (0.00-0.20); Basophils % (auto) 0.3 %; Eosinophils # (auto) 0.02 K/uL (0.00-0.50); Eosinophils % (auto) 0.2 %; Hematocrit (blood only) 39.6 % (37.0-47.0); Hemoglobin 13.6 g/dl (12.0-16.0); Immature Granulocytes # (auto) 0.05 K/uL (0.01-0.20); Immature Granulocytes % (auto) 0.5 %; Lymphocytes # (auto) 1.61 K/uL (1.20-3.40); Lymphocytes % (auto) 16.4 %; Mean Corpuscular Hemoglobin 30.5 pg (25.0-34.0); Mean Corpuscular Hgb Conc 34.3 g/dL (32.0-36.0); Mean Corpuscular Volume 88.8 fL (80.0-100.0); Mean Platelet Volume 9.7 fL (9.4-12.4); Monocytes # (auto) 0.94 K/uL (0.11-0.59); Monocytes % (auto) 9.6 %; Neutrophils # (auto) 7.14 K/uL (1.40-6.50); Platelet Count 236 K/uL (130-400); RDW Coefficient of Variation 12.3 % (11.5-14.5); RDW Standard Deviation 39.5 fL (36.4-46.3); Red Blood Count 4.46 M/uL (4.20-5.40); White Blood Count 9.79 K/ul (4.8-10.8)
[2024-06-15 07:04] LABS: BUN Creatinine Ratio 15.6 (10-20); Calcium 8.5 mg/dl (8.6-10.3); Creatinine Clr Calc Pharmacy 74.9 ml/min
[2024-06-15 07:25] VITALS: BP 149/82; PULSE 65; RESP 16; TEMP 97.9; O2SAT 99
[2024-06-15] MEDS: dexAMETHasone 10 MG in SYRINGE 0 ML IV SCH (08:52)
--- NOTE | 2024-06-15 11:22 | Orthopedic Progress Note ---
Date of Service June 15, 2024 Assessment & Plan (1) Status post right hip replacement: Plan: 59-year-old female postop day 1 from right hip replacement doing well. Pain is controlled. Hips located. She is neurologically intact. Plan: 1. DVT prophylaxis including thigh-high teds, SCDs, aspirin twice a day. 2. PT/OT. Weight-bear as taught. Right total knee protocol. 3. Pain control. Doing well with current pain regimen. 4. Disposition. Plan is to discharge to home with some home health today. Admission and Anticipated Discharge Date Admission Date: June 14, 2024 Subjective 59-year-old female postop day 1 from a right hip replacement. She is doing pretty well. Had a reasonable night. Pains been controlled. No chest pain or shortness of breath. Not feeling dizzy or lightheaded. Physical Exam Physical Exam: Enrique gar is a pleasant middle-age female. She was sitting in her bedside chair when I visited her today. Examination of the hip reveals the dressing be clean dry and intact. Prevena VAC dressing is working appropriately. Leg lengths appear equal. Thigh is soft and supple. She is neurologically intact. Respiratory: normal respiratory effort, lungs clear to auscultation Cardiovascular: RRR, no murmur, no edema Gastrointestinal (Abdomen): normal bowel sounds, soft, nontender, no hepatosplenomegaly Results & Data Vital Signs (Past 12 Hours) Vital Signs Temp Pulse Pulse Resp BP BP Pulse Ox 06/15/24 07:24 36.6 C 65 16 149/82 H 99 06/15/24 02:39 36.9 C 75 18 137/75 96 O2 Del Method 06/15/24 07:24 Room Air 06/15/24 02:39 Room Air Laboratory Results Hemoglobin is 13.6. Mackert is 39.6. Electrolytes are stable.
--- NOTE | 2024-06-15 12:36 | Discharge Summary ---
Date of Service June 15, 2024 Principal Diagnosis Same as "Discharge Diagnosis" noted below under Discharge Instructions. Discharge Data Procedures Performed Operation Date: 06/14/24 07:00 Actual Procedures p Right Total Hip Arthroplasty, Uncemented(Right) - Hill Moya MD Hospital Course (1) Status post right hip replacement: On June 14, 2024 Rima arrived at [facility] and underwent a right total hip arthroplasty performed by Dr. Moya with no complications. She had a spinal anesthetic. Postoperatively, she was started on aspirin for DVT prophylaxis and transferred to the general orthopedic floor in stable condition. Her hospital course was uneventful. On postoperative day #1, her vital signs were stable and her pain is well-controlled. She participated well with physical therapy working on ambulation range of motion exercises. She was then discharged home in stable condition. She will follow-up with Dr. Moya in 2 to 3 weeks for continued postoperative management or sooner if needed. PG Care Time/CCT Total # of Minutes Spent Total Time Spent with Patient: Total time spent is greater than 50% in coordination of care (as documented) at patient's floor/unit and/or counseling patient: Discharge Plan Discharge Items Patient Disposition: Home - Home Health Services Reason For Visit: Osteoarthritis Hip Right Discharge Diagnosis: Right Hip Replacement Activity: Per Instructions section Activity Comment: Follow/Obey hip precautions at all times. Weightbearing: Full weightbearing Weightbearing Comment: Weightbear as tolerated obeying hip precautions at all times. Non-emergency contact: Surgeon Call non-emergency contact if: you have any medication questions Follow-up/Referrals: Myles Park MD [Primary Care Provider] - Diet: Regular Addtl Attending Provider Instructions: ACTIVITY RECOMMENDATIONS: Diet: * You may resume previous diet. Physical Therapy: * Aggressive physical therapy is not usually needed. You will learn to take care of yourself safely and walk. * Follow the "Hip Precautions Instructions." * In some cases, the social work associate at the hospital will arrange to have a therapist come to your house for the first couple of weeks to help you learn these skills. * You need to practice on your own or with the help of a family member as needed. * When you learn these skills, most of the therapy can be done on your own. Home Exercise: * You were shown a series of exercises in the hospital. Do these exercises three to four times each day including the exercises you were shown in physical therapy. Walking: * Get up and walk several times each day. For the first four weeks, try not to stand or walk for more than one hour at a time. If you do stand or walk for more than one hour, you will not hurt anything, but your leg will likely swell. * As you feel comfortable, you may change from the walker or crutches to a cane and then to independent walking. MEDICATIONS: New Medicine: * You will likely be taking one or more of these medicines: 1. Tramadol - Take, as directed, when you need it, every six hours to control your pain. 2. Aspirin - Thins your blood to lessen the chance of forming a blood clot. * The most common side effects of pain medicine and iron are nausea and constipation. If nausea or constipation is too much of a problem or if you have any questions about your new medicines or doses, call [facility] at . We will try to help you manage these issues. "VERY IMPORTANT TO READ AND REVIEW" Pain: * The immediate post-operative period after hip replacement surgery is often quite painful. * You are given a prescription for pain medicine. You should take it, as directed, when you need it, especially before physical therapy and before going to bed. Pain that interferes with sleep is very common and can last several months. * You will likely need pain medicine for the first two to four weeks. It will not stop all of the pain. The pain will lessen and as you feel better, you may change to milder pain medicine such as Tylenol. * The most common side effects of pain medicine are nausea and constipation, so don't take more than you need. SPECIAL CARE INSTRUCTIONS: TEDs/Elastic Stockings: * The white elastic stockings help limit swelling and prevent blood clots from forming in your legs. The more you wear them, the more they work. * Wear them for six weeks. Incision Site Care: * Remove dressing postoperative day 2 and then shower. Keep direct shower pressure off the incision site. * After showering, cover randi with dry gauze and change daily or more frequently if the dressing is getting saturated with drainage. * May completely stop using bandage if wound is dry and no drainage * [place] are removed between 2 and 3 weeks post-op. If your follow-up appointment is made before 2 weeks, please have your appointment re- scheduled. It is too early to remove the randi. Prevention of Infection: * Take antibiotics one hour before any dental cleaning, dental work, urological procedure, gastrointestinal procedure or any invasive surgery in order to prevent your new joint from getting infected. * You may get the antibiotics from the doctor performing the procedure or you may call our office at before and we will call in a prescription to the pharmacy of your choice. Things to Watch For: * Drainage from the incision site that occurs more than one week after your surgery. * Severely increased leg pain or swelling. * Increased redness at the incision site. * Fever above 102 degrees Fahrenheit. * Unusual chest pain or shortness of breath. * Unusual pain or burning with urination. Call [facility] at with any of the above problems or if you have any questions about your medicines or recovery. FOLLOW UP VISIT: Make an appointment to see your doctor for approximately two weeks after surgery for a progress check and staple removal by calling the office at . Pending Studies at Discharge: No Stand-Alone Forms: My [facility], Smoking Cessation Medications and DC Order Prescriptions: Continued sennosides [Senokot] 8.6 mg tablet 8.6 mg PO BID 14 Days Qty: 28 0RF Rx Instructions: Take two times a day to prevent/treat constipation aspirin [Huma Low Dose Aspirin] 81 mg tablet,delayed release (DR/EC) 81 mg PO BID 45 Days Qty: 90 0RF Rx Instructions: Take to prevent blood clots. tramadol 50 mg tablet 50 - 100 mg PO Q6 PRN (Reason: pain) Qty: 40 0RF Rx Instructions: Take as needed for pain acetaminophen [Tylenol Extra Strength] 500 mg tablet 1,000 mg PO TID 30 Days Qty: 180 0RF Rx Instructions: Take 3 times per day to lessen pain. ketorolac 10 mg tablet 10 mg PO Q6 5 Days Qty: 20 0RF Rx Instructions: Take 4 times per day with food for 5 days to lessen pain and swelling. cefadroxil 500 mg capsule 500 mg PO BID 7 Days Qty: 14 0RF Rx Instructions: Take 1 cap twice a day to prevent infection ondansetron 4 mg tablet,disintegrating 4 mg PO Q8 PRN (Reason: nausea) Qty: 20 1RF Rx Instructions: Take as needed for nausea multivitamin Tablet 1 tab PO QAM Discontinued aspirin [Huma Low Dose Aspirin] 81 mg tablet,delayed release (DR/EC) 81 mg PO QAM Krames/Other Patient Handouts: Hip Precautions, Hip Total Replacement Dc Admission Data Admit Date/Time: 06/14/24 08:41 Attending Provider: iHll Moya Admit Provider: Hill Moya Primary Care Provider: Myles Park Other Providers: [facility],Home Health Other Interventions: Discharge Summary Assessment (RN) Last Done: 06/15/24 10:34
== END 2024-06-15 11:07 | disposition home health service (06) ==
LOC: ASU 05:20 → 3E 05:20